=== PATIENT | male | born 1970 | race Caucasian/White ===

== ENCOUNTER 2020-11-26 08:56 | Inpatient (IN) | payer BC ==
[~2020-11-26] VITALS: Ht 188 cm; Wt 111.1 kg
[2020-11-26] MEDS ORDERED: IV NS 1000 ML 1,000 ML IV ONE (09:30)
[2020-11-26] MEDS ORDERED: LABETALOL HCL 100 MG/20 ML VIAL IV ONE (09:30)
[2020-11-26 09:44] LABS: MEAN CORPUSCULAR HEMOGLOBIN 31.4 uug (23.8-33.4); MEAN CORPUSCULAR VOLUME 91.3 fL (73.0-96.2); PLATELET COUNT (AUTO) 193 K/uL (152-348)
[2020-11-26 09:48] LABS: CARBON DIOXIDE 28 mmol/L (21-32); CHLORIDE 101 mmol/L (98-107); CREATININE 1.2 mg/dL (0.6-1.3); GLUCOSE 115 mg/dL (74-106); POTASSIUM 3.9 mmol/L (3.5-5.1); UREA NITROGEN, BLOOD 11 mg/dL (7-18)
[2020-11-26 09:52] LABS: ETHANOL < 3 MG/DL (0-0)
[2020-11-26 09:53] LABS: ALANINE AMINOTRANSFERASE 49 U/L (16-63); ALKALINE PHOSPHATASE 87 U/L (50-136); ASPARTATE AMINOTRANSFERASE 32 U/L (15-37); BILIRUBIN,DIRECT 0.2 mg/dL (0.0-0.2); BILIRUBIN,TOTAL 0.6 mg/dL (0.2-1.0); TOTAL PROTEIN, SERUM 8.7 g/dL (6.4-8.2)
[2020-11-26 10:05] LABS: MAGNESIUM 2.2 mg/dL (1.8-2.4); PHOSPHOROUS 2.6 mg/dL (2.5-4.9)
--- NOTE | 2020-11-26 10:10 | NUR ---
Pt BP is 141/85 at this time, Labetelol held at this time per Dr.Mehta ashby.
[2020-11-26] MEDS ORDERED: CLOPIDOGREL 75 MG TABLET PO ONE (10:15)
[2020-11-26] MEDS ORDERED: ASPIRIN 325 MG TABLET PO ONE (10:15)
[2020-11-26] MEDS ORDERED: ASPIRIN 325 MG TABLET ONE (10:25)
[2020-11-26] MEDS ORDERED: CLOPIDOGREL 75 MG TABLET ONE ×2 (10:26→10:27)
--- NOTE | 2020-11-26 11:00 | NUR ---
Pt to be admitted to tele, spoke with via telephone. Called tele floor for bed assignment.
--- NOTE | 2020-11-26 12:00 | NUR ---
Pt resting with NAD noted, pend tele admit.
--- NOTE | 2020-11-26 13:30 | NUR ---
Pt resting with NAD noted. Called multiple times for tele bed assignment, charge nurse to call back.
--- NOTE | 2020-11-26 14:56 | NUR ---
Called tele floor again and was assigned room 229A, assigned nurse not available for report and to call back.
--- NOTE | 2020-11-26 15:20 | NUR ---
SBAR report given to JAYASHREE Hoyt via telephone.
--- NOTE | 2020-11-26 15:40 | NUR ---
Pt trans to tele floor, NAD noted.
--- NOTE | 2020-11-26 15:50 | NUR ---
RECEIVED PATIENT FROM ED AWAKE ALERT AND ORIENTED WITH DX OF HYPERTENSION AND R/O CVA PATIENT IS ALERT AND ORIENTED DENIES DISCOMFORTS SATED THAT HIS HEADACHES ARE ALMOST GONE PUPIL ARE EQUAL AND REACTIVE TO [facility] AMBULATORY GOOD STRONG HAND ENTRY CLERK NO SOB DR CAMPOVERDE NOTIFIED RE PATIENT IS HERE WITH DIET ORDER AND NOTED.
[2020-11-26] MEDS ORDERED: MAGNESIUM HYDROXIDE 30 ML LIQUID UDC PO PRN (16:15)
[2020-11-26] MEDS ORDERED: ACETAMINOPHEN 325 MG TABLET PO PRN (16:15)
[2020-11-26] MEDS ORDERED: ZOLPIDEM 5 MG TABLET PO PRN (16:15)
[2020-11-26] MEDS ORDERED: HYDROCODONE/APAP 5-325MG TABLET PO PRN (16:15)
[2020-11-26] MEDS ORDERED: hydrALAZINE HCL 25 MG TABLET PO PRN (16:15)
[2020-11-26] MEDS ORDERED: ONDANSETRON 4 MG/2 ML VIAL IV PRN (16:15)
[2020-11-26 16:40] VITALS: BP 168/108
--- NOTE | 2020-11-26 16:58 | NUR ---
BLOOD PRESSURE IS 168/108 PATIENT IS ASSYMPTOMATIC MEDICATED WITH HYDRALAZINE ORDERED.
--- NOTE | 2020-11-26 17:27 | NUR ---
DR GUERRERO HERE TO SEE PATIENT AND AWARE OF HIS ELEVATED BLOOD PRESSURE AND PATIENT HAS A SITE ON HIS RIGHT INNER WRIST AND PATIENT STATED WAS STUCK SO MANY TIMES AND HE IS A VERY HARD STICK STATED TO START A MIDLINE PATIENT HAS AN ORDER FOR MRI OF THE BRAIN AND HEAD WITH IV CONTRAST AND HE ORDERED A MIDLINE [employer] S[employer]IOR FINANCIAL REPORTING ACCOUNTANT NOTIFIED OF NEED FOR MID LINE NURSE.
--- NOTE | 2020-11-26 19:30 | NUR ---
Pts IV was not intact, would not flush. IV removed and dressing applied. Automation Specialist aware of need for midline. Pt refuses to have peripheral IV started and states that he wants to wait for midline.
[2020-11-26 20:00] VITALS: BP 141/77
[2020-11-26] MEDS ORDERED: ATORVASTATIN 40 MG TABLET PO SCH (21:00)
[2020-11-27] VITALS: BP 121/76
[2020-11-27 05:31] VITALS: BP 109/52
--- NOTE | 2020-11-27 05:33 | NUR ---
Pt slept throughout the night. Denies pain or SOB. Able to make needs known. Midline inserted, 18g TJ. NIHSS score of 0. Pt able to follow commands and has no deficits. Safety and comfort provided. Will endorse to day shift.
[2020-11-27 06:29] LABS: HEMATOCRIT 43.5 % (36.7-47.1); MEAN CORPUSCULAR HEMOGLOBIN 31.5 uug (23.8-33.4); MEAN CORPUSCULAR VOLUME 90.9 fL (73.0-96.2); PLATELET COUNT (AUTO) 176 K/uL (152-348)
[2020-11-27] MEDS ORDERED: PANTOPRAZOLE SODIUM 40 MG TABLET.DR PO SCH (07:00)
[2020-11-27 07:45] LABS: BILIRUBIN,TOTAL 0.6 mg/dL (0.2-1.0); CREATININE 1.2 mg/dL (0.6-1.3); MAGNESIUM 2.2 mg/dL (1.8-2.4); POTASSIUM 4.3 mmol/L (3.5-5.1); TOTAL PROTEIN, SERUM 7.5 g/dL (6.4-8.2)
[2020-11-27] MEDS ORDERED: ASPIRIN EC 81 MG TABLET.DR PO SCH (09:00)
[2020-11-27] MEDS ORDERED: CLOPIDOGREL 75 MG TABLET PO SCH (09:00)
--- NOTE | 2020-11-27 09:45 | NUR ---
Patient remains alert, oriented x 4, not in any form of distress, on room air. He denies any pain or discomfort. Vital signs stable. Assisted with his needs. Call light and frequently used items placed within patient's reach.
[2020-11-27 11:03] VITALS: BP 121/67
--- NOTE | 2020-11-27 13:10 | NUR ---
Patient picked up by [facility] transportation to go for MRI via gurney. Patient remains with stable vital signs, no complain of any pain or discomfort. Sinus rhythm on tele.
--- NOTE | 2020-11-27 15:00 | NUR ---
Patient back from MRI. He remains alert, oriented x 4, not in any form of distress on room air. Denies any discomfort.
[2020-11-27 15:38] VITALS: BP 139/92
--- NOTE | 2020-11-27 16:20 | NUR ---
pt wants to go AMA- informed fo the risks- still wanted to leave, AMA signed by pt, left upper arm midline removed- no swelling/redness noted on site, states to pick her up,
--- NOTE | 2020-11-27 16:25 | NUR ---
Dr Diaz informed of pt going AMA
--- NOTE | 2020-11-27 16:40 | NUR ---
Escorted by RN in charge of pt, with all his belongings
[2020-11-28] MEDS ORDERED: LOSA50TA39 PO (09:38)
[2020-11-28] MEDS ORDERED: AMLO5TAB4 PO (09:38)
== END 2020-11-27 16:30 | disposition left against medical advice (07) | DRG 74 ==
LOC: ER 08:56 → TELE3 15:31
PROVIDERS: ADMIT Internal Medicine; ATTEND Internal Medicine
PROC: 05H633Z Insertion of Infusion Device into Left Subclavian Vein, Percutaneous Approach (ICD-10-PCS; principal; 2020-11-26)
PROC: B547ZZA Ultrasonography of Left Subclavian Vein, Guidance (ICD-10-PCS; 2020-11-26)
DX: M54.10 Radiculopathy, site unspecified (principal); R53.1 Weakness; E78.5 Hyperlipidemia, unspecified; E66.9 Obesity, unspecified; F17.210 Nicotine dependence, cigarettes, uncomplicated; Z20.822 Contact with and (suspected) exposure to COVID-19; F14.90 Cocaine use, unspecified, uncomplicated; Z68.31 Body mass index [BMI] 31.0-31.9, adult; F41.9 Anxiety disorder, unspecified; R03.0 Elevated blood-pressure reading, without diagnosis of hypertension; F10.10 Alcohol abuse, uncomplicated; R42 Dizziness and giddiness; T67.9XXA Effect of heat and light, unspecified, initial encounter; X58.XXXA Exposure to other specified factors, initial encounter; Y93.9 Activity, unspecified; Y92.89 Other specified places as the place of occurrence of the external cause
CPT/HCPCS: 36415; 70030-TC; 70450; 70551; 71045; 83735; 84100; 84443; 85025; 93005; 93307; A4663; G0378; G0480; J7030

== ENCOUNTER 2020-11-28 07:04 | Emergency (ER) | payer BC ==
[~2020-11-28] VITALS: Ht 190.5 cm; Wt 111.1 kg
[2020-11-28] MEDS ORDERED: METOCLOPRAMIDE HCL 10 MG/2 ML VIAL IM ONE (08:00)
[2020-11-28 08:21] LABS: HEMATOCRIT 43.4 % (36.7-47.1); MEAN CORPUSCULAR HEMOGLOBIN 31.5 uug (23.8-33.4); MEAN CORPUSCULAR VOLUME 91.4 fL (73.0-96.2); PLATELET COUNT (AUTO) 169 K/uL (152-348)
[2020-11-28] MEDS ORDERED: METOCLOPRAMIDE HCL 10 MG/2 ML VIAL ONE (08:24)
[2020-11-28 08:29] LABS: CREATININE 1.1 mg/dL (0.6-1.3)
[2020-11-28 08:42] LABS: BILIRUBIN,DIRECT 0.1 mg/dL (0.0-0.2); BILIRUBIN,TOTAL 0.5 mg/dL (0.2-1.0); TOTAL PROTEIN, SERUM 7.4 g/dL (6.4-8.2)
[2020-11-28] MEDS ORDERED: AMLO5TAB4 PO (09:38)
[2020-11-28] MEDS ORDERED: LOSA50TA39 PO (09:38)
[2020-11-28 09:55] VITALS: BP 126/87
--- NOTE | 2020-11-28 09:59 | NUR ---
Patient discharged to home in stable condition. Written and verbal after care instructions given. Patient verbalizes understanding of instructions. Stressed follow up or return to ER for worsening s/s.
== END 2020-11-28 10:00 | disposition home or self-care (01) ==
LOC: ER 07:05
DX: I10 Essential (primary) hypertension (principal); E78.5 Hyperlipidemia, unspecified; E66.9 Obesity, unspecified; Z68.30 Body mass index [BMI] 30.0-30.9, adult; F14.90 Cocaine use, unspecified, uncomplicated
CPT/HCPCS: 36415; 80048; 80076; 83880; 84484; 85025; 93005; 96372; 99284; J2765; 70030-TC; A4663